=== PATIENT | female | born 1995 | race Two or more races ===

== ENCOUNTER → 2023-01-28 | Emergency (ER) | payer OTHER ==
[~2023-01-28] VITALS: Ht 167.6 cm; Wt 52.2 kg
[~2023-01-28] MED LIST: AMBIEN10 MG PO; XANAX2 MG PO
== END | disposition left against medical advice (07) ==
LOC: ER 22:32
DX: Z53.21 Procedure and treatment not carried out due to patient leaving prior to being seen by health care provider (principal)